=== PATIENT | male | born 1980 ===

== ENCOUNTER 2024-10-20 05:32 | Day surgery (SDC) | payer OTHER ==
[2024-10-17 10:49] LABS: URINE APPEARANCE Clear; URINE BILIRRUBIN Negative (NEGATIVE); URINE BLOOD Negative; URINE COLOR Yellow; URINE GLUCOSE Negative (NEGATIVE); URINE KETONE Negative (NEGATIVE); URINE LEUKOCYTE Trace; URINE NITRATE Negative; URINE PROTEIN Negative (NEGATIVE); URINE UROBILINOGEN 0.2 E.U./dl
[2024-10-17 10:53] LABS: URINE BACTERIA 4.8 uL (0.0-1933); URINE WBC 3.6 uL (0.0-23.2)
[2024-10-17 10:58] LABS: HEMATOCRIT 39.9 % (39.0-48.0); HEMOGLOBIN 13.2 g/dL (13-16.00); MEAN CORPUSCULAR HEMOGLOBIN 30.7 pg (27.00-32.0); PLATELET COUNT 214 K/uL (150-450); RED BLOOD COUNT 4.29 M/uL (4.00-6.00); RED CELL DISTRIBUTION WIDTH 13.5 % (11.5-14.5)
[2024-10-17 11:05] LABS: URINE EPITHELIAL CELLS 0.4 uL (0.0-38.8); URINE RBC 0.5 uL (0.0-20.8)
[2024-10-17 11:15] LABS: INR 0.99; PARTIAL THROMBOPLASTIN TIME 26.8 SECONDS (22.0-34.0); PROTHROMBIN TIME 10.8 SECONDS (9.0-11.5)
[2024-10-17 11:48] LABS: CALCIUM 9.5 mg/dL (8.5-10.1); CREATININE SERUM 1.03 mg/dL (0.70-1.30); GFR 79.2; POTASSIUM 4.1 mEq/L (3.5-5.1)
[2024-10-20] MEDS ORDERED: CEFAZOLIN SODIUM 1,000 MG VIAL IV ONE (07:45)
[2024-10-20] MEDS ORDERED: KETO10TA2 PO (08:00)
[2024-10-20] MEDS ORDERED: MIRALAX17 GM PO (08:00)
[2024-10-20] MEDS ORDERED: TRAMADOL HCL50 MG PO (08:00)
[2024-10-20] MEDS ORDERED: TYLENOL ARTHRI650 MG PO (08:00)
[2024-10-20] MEDS ORDERED: KETOROLAC TROMETHAMINE 60 MG VIAL IM ONE ×2 (08:48→09:00)
== END 2024-10-20 14:40 | disposition home or self-care (01) ==
LOC: CIR.AMB 05:32
PROVIDERS: ATTEND Surgery
DX: K40.90 Unilateral inguinal hernia, without obstruction or gangrene, not specified as recurrent (principal); K42.0 Umbilical hernia with obstruction, without gangrene
CPT/HCPCS: 49650; 49592; C1781